=== PATIENT | female | born 1960 | race Caucasian/White ===

== ENCOUNTER → 2021-01-07 09:02 | Outpatient (BNVA) | payer OTHER, SELFPAY | PROVIDERS: PCP Family Medicine; Visit Provider Internal Medicine | DX: R76.8 Other specified abnormal immunological findings in serum (principal); Z11.59 Encounter for screening for other viral diseases; M54.9 Dorsalgia, unspecified; M79.606 Pain in leg, unspecified; M70.60 Trochanteric bursitis, unspecified hip; Y93.9 Activity, unspecified; K12.1 Other forms of stomatitis; R53.83 Other fatigue | CPT/HCPCS: 99204 ==

== ENCOUNTER 2021-01-07 10:31 | Outpatient (CLI) | payer OTHER, SELFPAY ==
--- NOTE | 2021-01-07 10:35 | XR_ITS ---
WS: [id number] Exam: XR sacroiliac jts m 3V [id number] Date/Time of Exam: 01/07/2021 10:35 AM Reason For Exam: L40.9 - Psoriasis, unspecified No fracture or dislocation. 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 No sign of bone destruction. T he SI joints remain open. XR/XR sacroiliac jts m 3V [id number] IMPRESSION: 1. Moderately advanced DJD and bony sclerosis of the SI joints. No acute fractu re or SI joint fusion.
--- NOTE | 2021-01-07 10:35 | XR_ITS ---
WS: [id number] Exam: XR femur RT min 2V* [id number] Date/Time of Exam: 01/07/2021 10:35 AM Reason For Exam: R76.8 - Other specified abnormal immunological findings in serum No acute fracture or dislocation. Normal soft tissues. Moderate DJD at the hip. XR/XR femur RT min 2V* [id number] IMPRESSION: 1. Unremarkable right femur. 2. Moderate DJD at the hip.
--- NOTE | 2021-01-07 10:35 | XR_ITS ---
WS: [id number] Exam: XR lumbar spine 2-3V* [id number] Date/Time of Exam: 01/07/2021 10:35 AM Reason For Exam: R76.8 - Other specified abnormal immunological findings in serum No acute fracture or dislocation. Mild disc space narrowing at all levels. Facet DJD at all levels mo st marked at L4-5 and L5-S1. Mild spondylosis. Osteopenia. Levoscoliosis. DJD of the SI joints. XR/XR lumbar spine 2-3V* [id number] IMPRESSION: 1. Moderate degenerative changes and osteopenia. 2. No acute fracture or malalignment. 3. Levoscoliosis.
[2021-01-07 11:48] LABS: Basophils # 0.1 10^3/uL (0.0-0.1); Eosinophils # 0.2 10^3/uL (0.0-0.8); Eosinophils % 2.5 %; Hematocrit 43.6 % (37.0-47.0); Hemoglobin 14.2 g/dL (11.5-15.3); Lymphocytes # 1.6 10^3/uL (0.8-4.8); Lymphocytes % 26.4 %; Mean Corpuscular HGB Conc 32.6 g/dL (30.0-36.0); Mean Corpuscular Hemoglobin 30.1 pg (28.0-34.0); Mean Corpuscular Volume 92.6 fL (81-99); Mean Platelet Volume 9.1 fL (7.4-10.4); Monocytes # 0.4 10^3/uL (0.2-0.9); Neutrophils # 3.84 10^3/uL (1.8-7.7); Neutrophils % 62.8 %; Nucleated Red Blood Cells % 0 %; Platelet Count 401 10^3/cmm (130-400); Red Blood Count 4.71 10^6/uL (4.1-5.3); Red Cell Distribution Width 12.7 % (12.1-15.1); White Blood Count 6.1 10^3/uL (4.0-10.0)
[2021-01-07 12:43] LABS: Erythrocyte Sedimentation Rate 17 mm/hr (0-15)
[2021-01-07 12:45] LABS: Alanine Aminotransferase 24 U/L (0-33); Albumin Level 4.7 g/dL (3.5-5.2); Alkaline Phosphatase 73 IU/L (35-105); Anion Gap 14.1 (5-19); Aspartate Amino Transferase 15 U/L (0-32); Blood Urea Nitrogen 11 mg/dL (8-23); C Reactive Protein 1.1 mg/L (0.0-4.9); Carbon Dioxide 26 mmol/L (22-29); Chloride 102 mmol/L (98-107); Ferritin 63 ng/mL (15-150); Globulin 3.1 g/dL (1.3-4.6); Glucose 81 mg/dL (65-115); Iron 83 ug/dL (37-145); Magnesium 1.8 mg/dL (1.7-2.3); Osmolality Calculated 284 mOsm/kg (285-295); Phosphorus 3.1 mg/dL (2.5-4.5); Potassium 4.1 mmol/L (3.5-5.1); Sodium 138 mmol/L (136-145); Thyroid Stimulating Hormone 1.11 uIU/mL (0.27-4.20); Total Bilirubin 0.2 mg/dL (0.15-1.2); Total Protein 7.8 g/dL (6.6-8.7)
[2021-01-07 13:59] LABS: Cortisol Random 7.78 ug/dL (2.47-19.5); Hepatitis B Core AB, Total Non-Reactive (Nonreactive); Hepatitis B Surface Antigen Non-Reactive (Nonreactive); Hepatitis C Virus Antibody Non-Reactive (Nonreactive)
[2021-01-08 11:57] LABS: COMPLEMENT COMPONENT C3C 139 mg/dL (83-193); COMPLEMENT COMPONENT C4C 35 mg/dL (15-57)
[2021-01-08 14:31] LABS: CENTROMERE B ANTIBODY <1.0 NEG AI (<1.0 NEG); JO-1 ANTIBODY <1.0 NEG AI (<1.0 NEG); RNP ANTIBODY <1.0 NEG AI (<1.0 NEG); SCL-70 ANTIBODY <1.0 NEG AI (<1.0 NEG); SJOGREN'S ANTIBODY (SS-A) <1.0 NEG AI (<1.0 NEG); SM ANTIBODY <1.0 NEG AI (<1.0 NEG); SS-B <1.0 NEG AI (<1.0 NEG)
[2021-01-08 15:32] LABS: THYROID PEROXIDASE ANTIBODIES 1 IU/mL (<9)
[2021-01-12 14:57] LABS: ANA PATTERN Nuclear, Homogeneous; ANA SCREEN, IFA POSITIVE (NEGATIVE)
[2021-01-13 00:42] LABS: DNA AB (DS) CRITHIDIA,IFA NEGATIVE (NEGATIVE)
== END 2021-01-07 10:32 | disposition home or self-care (01) ==
PROVIDERS: PCP Family Medicine; Visit Provider Internal Medicine
DX: R76.8 Other specified abnormal immunological findings in serum (principal); D86.9 Sarcoidosis, unspecified; L40.9 Psoriasis, unspecified; Z51.81 Encounter for therapeutic drug level monitoring; Z11.59 Encounter for screening for other viral diseases
CPT/HCPCS: 36415; 72100; 72202; 73552; 80053; 82533; 82728; 83540; 83735; 84100; 84443; 85025; 85651; 86140; 86160; 86162; 86235; 86255; 86376; 86431; 86704; 86803; 87340

== ENCOUNTER → 2021-01-30 10:26 | Outpatient (BNVA) | payer OTHER, SELFPAY | PROVIDERS: PCP Family Medicine; Referring Provider Internal Medicine; Visit Provider Anesthesiology Pain Medicine | DX: M54.16 Radiculopathy, lumbar region (principal); M54.9 Dorsalgia, unspecified; M53.3 Sacrococcygeal disorders, not elsewhere classified; M47.816 Spondylosis without myelopathy or radiculopathy, lumbar region | CPT/HCPCS: 99205 ==

== ENCOUNTER → 2021-06-01 09:52 | Outpatient (BNVA) | payer OTHER, SELFPAY | PROVIDERS: PCP Family Medicine; Visit Provider Internal Medicine | DX: R53.83 Other fatigue (principal); M53.3 Sacrococcygeal disorders, not elsewhere classified; Z79.899 Other long term (current) drug therapy; R76.8 Other specified abnormal immunological findings in serum; M54.9 Dorsalgia, unspecified | CPT/HCPCS: 36415; 80053; 85025; 85651; 86140; 86812; 99214 ==

== ENCOUNTER → 2022-06-29 12:00 | Outpatient (BNVA) | payer OTHER, SELFPAY | PROVIDERS: PCP Family Medicine; Visit Provider Family Medicine | DX: Z00.00 Encounter for general adult medical examination without abnormal findings (principal); R76.8 Other specified abnormal immunological findings in serum; R53.83 Other fatigue; M79.606 Pain in leg, unspecified | CPT/HCPCS: 80053; 80061; 83036; 85025; 85651; 86140; 86160; 86162; 86235; 86255; 86376 ==

== ENCOUNTER 2022-07-07 09:58 | Outpatient (CLI) | payer OTHER, SELFPAY ==
--- NOTE | 2022-07-07 10:13 | MM_ITS ---
WS: [id number] BILATERAL SCREENING DIGITAL TOMOSYNTHESIS MAMMOGRAM WITH CAD HISTORY: screening COMPARISON: 08/20/2014 Bilateral CC and MLO views with tomosynthesis and synthetic mammography submitted. Computer aided det ection analyzed. Breast composition: There are scattered areas of fibroglandular density. No suspicious masses, microc alcifications or architectural distortion. MM/[place] [id number] IMPRESSION: BI-RADS: 1-Negative FOLLOW UP: 1 Year Follow-up
== END 2022-07-07 09:59 | disposition home or self-care (01) ==
PROVIDERS: PCP Family Medicine; Visit Provider Family Medicine
DX: Z12.31 Encounter for screening mammogram for malignant neoplasm of breast (principal)
CPT/HCPCS: 77063; 77067

== ENCOUNTER → 2023-06-01 09:06 | Outpatient (BNVA) | payer MEDICARE, SELFPAY | PROVIDERS: PCP Family Medicine; Visit Provider Family Medicine | DX: Z00.00 Encounter for general adult medical examination without abnormal findings (principal); I10 Essential (primary) hypertension; E11.9 Type 2 diabetes mellitus without complications | CPT/HCPCS: 80053; 80061; 83036; 85025 ==

== ENCOUNTER 2023-08-31 07:27 | Day surgery (SDC) | payer MEDICARE, MEDICAID, SELFPAY ==
[2023-08-31 07:40] VITALS: BP 165/79; PULSE 77; RESP 18; TEMP 36.6; O2SAT 98; BMI 25.7
--- NOTE | 2023-08-31 07:45 | PM.HP ---
Providers/Chief Complaint Primary Care Provider: Wilmar Basilio MD Chief Complaint: Z12.11 History of Present Illness Padmini Ashton is a 62 year old female here for her first screening colonoscopy. She reports that her maternal grandfather had colon cancer. She denies any abdominal pain, nausea, emesis, diarrhea, constipation, hematochezia and/or melena Review of Systems General: Reports: 10 or more systems reviewed and unremarkable except in HPI and below Medications/Allergies Home Medications Medication Instructions Recorded Confirmed Last Taken Type aspirin 81 mg tablet,delayed 81 mg PO DAILY 12/26/20 08/31/23 08/30/23 History release multivitamin 1 tab PO DAILY 12/26/20 08/31/23 08/30/23 History acetaminophen 500 mg tablet 500 mg PO Q6H PRN Pain 01/30/21 08/31/23 08/26/23 History (Tylenol Extra Strength) alprazolam 0.25 mg tablet 0.25 mg PO BID PRN anxiety #30 tabs 06/01/23 08/31/23 Unknown Rx atorvastatin 20 mg tablet 20 mg PO DAILY #90 tabs 06/01/23 08/31/23 08/30/23 Rx glimepiride 2 mg tablet 2 mg PO DAILY #90 tabs 06/01/23 08/31/23 08/30/23 Rx lisinopril 5 mg tablet 5 mg PO DAILY #90 tabs 06/01/23 08/31/23 08/30/23 Rx metformin 1,000 mg tablet 1,000 mg PO BID #180 tabs 06/01/23 08/31/23 08/30/23 Rx Allergies Allergy/AdvReac Type Severity Reaction Status Date / Time codeine Allergy Severe severe Verified 08/31/23 07:38 oxytetracycline Allergy Severe severe Verified 08/31/23 07:38 [From Terramycin] Penicillins Allergy Severe severe Verified 08/31/23 07:38 Sulfa (Sulfonamide Allergy Severe severe Verified 08/31/23 07:38 Antibiotics) meloxicam Allergy Mild dizziness Verified 08/31/23 07:38 simvastatin AdvReac Intermediate cramps Verified 08/31/23 07:38 PFSH Acute PFSH: Medical History (Updated 08/31/23 @ 07:46 by Ata Chavez DO) Diabetes Family history of colon cancer Hypertension Surgical History (Updated 08/31/23 @ 07:46 by Ata Chavez DO) History of tubal ligation Social History Smoking and tobacco/nicotine status: never used tobacco/nicotine Second hand smoke exposure: No Alcohol intake: never Substance/Drug Use: never Lives independently: Yes A&P Assessment and plan (1) Colon cancer screening: (2) Family history of colon cancer: Plan Screening colonoscopy The risks and benefits of the procedure, including bleeding, infection, intestinal perforation requiring surgery, missed lesion were explained to the patient. The patient is understanding of the risks and wishes to proceed. Attestations Medical Necessity Statement*: home Coding Level of Care Code Acute Code for Chg Fwd Diagnoses Colon cancer screening Z12.11 Family history of colon cancer Z80.0
--- NOTE | 2023-08-31 07:49 | ANES.PREANE2 ---
Pre-Anesthetic Assessment Height/Weight: Height 1.63 m Weight 68.039 kg Temp Pulse Resp BP Pulse Ox O2 Del Method 97.8 F 77 18 165/79 98 Room Air 08/31/23 07:40 08/31/23 07:40 08/31/23 07:40 08/31/23 07:40 08/31/23 07:40 08/31/23 07:40 Preop Diagnosis: screening Operation Date: 08/31/23 08:30 Proposed Procedures p Colonoscopy 81047,Z12.11(Not Applicable) - Ata Chavez DO Familial anesthetic complications: None Was Beta Karlee taken within 24 hours: N/A Was Clonidine taken within 24 hours: N/A Last intake: Intake Last Liquid Date 08/30/23 Last Liquid Time 23:00 Last Solid Date 08/29/23 Social No alcohol and No tobacco Exam alert, oriented x 3 and regular rate & rhythm Airway Submandibular: within normal limits Mallampati: Class II Dentition: full and other (2 loose caps front teeth) History/ROS No significant history except as noted Pulmonary None reported CV/HEM Hypertension None reported Hepatic None reported GI None reported Metabolic Diabetes Mellitus (type 2) [facility] [place] None reported Neuropsych None reported Anesthetic Plan ASA status: 2 Anesthesia: MAC Risk of > 500 ml blood loss (7ml/kg in children): No Medications/Allergies Home Medications Medication Instructions Recorded Confirmed Last Taken Type aspirin 81 mg tablet,delayed 81 mg PO DAILY 12/26/20 08/31/23 08/30/23 History release multivitamin 1 tab PO DAILY 12/26/20 08/31/23 08/30/23 History acetaminophen 500 mg tablet 500 mg PO Q6H PRN Pain 01/30/21 08/31/23 08/26/23 History (Tylenol Extra Strength) alprazolam 0.25 mg tablet 0.25 mg PO BID PRN anxiety #30 tabs 06/01/23 08/31/23 Unknown Rx atorvastatin 20 mg tablet 20 mg PO DAILY #90 tabs 06/01/23 08/31/23 08/30/23 Rx glimepiride 2 mg tablet 2 mg PO DAILY #90 tabs 06/01/23 08/31/23 08/30/23 Rx lisinopril 5 mg tablet 5 mg PO DAILY #90 tabs 06/01/23 08/31/23 08/30/23 Rx metformin 1,000 mg tablet 1,000 mg PO BID #180 tabs 06/01/23 08/31/23 08/30/23 Rx Allergies Allergy/AdvReac Type Severity Reaction Status Date / Time codeine Allergy Severe severe Verified 08/31/23 07:38 oxytetracycline Allergy Severe severe Verified 08/31/23 07:38 [From Terramycin] Penicillins Allergy Severe severe Verified 08/31/23 07:38 Sulfa (Sulfonamide Allergy Severe severe Verified 08/31/23 07:38 Antibiotics) meloxicam Allergy Mild dizziness Verified 08/31/23 07:38 simvastatin AdvReac Intermediate cramps Verified 08/31/23 07:38 [facility] Anesthesia Medical History (Updated 08/31/23 @ 07:46 by Ata Chavez DO) Diabetes Family history of colon cancer Hypertension Surgical History (Updated 08/31/23 @ 07:46 by Ata Chavez DO) History of tubal ligation Social History Smoking and tobacco/nicotine status: never used tobacco/nicotine Second hand smoke exposure: No Alcohol intake: never Substance/Drug Use: never Lives independently: Yes Data Anesthesia Cardiac Studies: No Data to Display
[2023-08-31] MEDS: sodium chloride 0.9% 1,000 ML 30 ML IV (07:51)
[2023-08-31 08:00] LABS: Glucose Point of Care 112 mg/dL (70-110)
[2023-08-31 08:24] VITALS: BP 144/74; PULSE 63; RESP 14; TEMP 36.2; O2SAT 97
[2023-08-31 08:33] VITALS: BP 143/82; PULSE 63; RESP 16; TEMP 36.2; O2SAT 100
[2023-08-31 08:44] VITALS: BP 159/73; PULSE 66; RESP 18; TEMP 36.3; O2SAT 99
== END 2023-08-31 08:54 | disposition home or self-care (01) ==
PROVIDERS: PCP Family Medicine; Visit Provider Surgery
PROC: 0DJD8ZZ Inspection of Lower Intestinal Tract, Via Natural or Artificial Opening Endoscopic (ICD-10-PCS; CPT 45378; principal; 2023-08-31 08:30)
DX: Z12.11 Encounter for screening for malignant neoplasm of colon (principal); Z80.0 Family history of malignant neoplasm of digestive organs; K57.30 Diverticulosis of large intestine without perforation or abscess without bleeding; D12.4 Benign neoplasm of descending colon; Z79.82 Long term (current) use of aspirin; Z79.84 Long term (current) use of oral hypoglycemic drugs; E11.9 Type 2 diabetes mellitus without complications; I10 Essential (primary) hypertension
CPT/HCPCS: 36416; 45385; 82962; 88305; J2704; J7030

== ENCOUNTER → 2023-09-13 14:02 | Outpatient (BNVA) | payer MEDICARE, MEDICAID, SELFPAY | PROVIDERS: PCP Family Medicine; Visit Provider Surgery | DX: Z09 Encounter for follow-up examination after completed treatment for conditions other than malignant neoplasm (principal) | CPT/HCPCS: 99213 ==

== ENCOUNTER → 2023-11-15 13:26 | Outpatient (BNVA) | payer MEDICARE, MEDICAID, SELFPAY | PROVIDERS: PCP Family Medicine; Visit Provider Nurse Practitioner | DX: R05.9 Cough, unspecified (principal) | CPT/HCPCS: 87400 ==

== ENCOUNTER → 2024-07-04 09:17 | Outpatient (BNVA) | payer MEDICARE, SELFPAY | PROVIDERS: PCP Family Medicine; Visit Provider Family Medicine | DX: Z00.00 Encounter for general adult medical examination without abnormal findings (principal); I10 Essential (primary) hypertension; E11.9 Type 2 diabetes mellitus without complications | CPT/HCPCS: 80053; 80061; 83036; 87624 ==

== ENCOUNTER 2024-08-21 09:54 | Outpatient (CLI) | payer MEDICARE, SELFPAY ==
--- NOTE | 2024-08-21 10:00 | MM_ITS ---
WS: [id number] BILATERAL 3D TOMOSYNTHESIS DIGITAL SCREENING MAMMOGRAPHY WITH CAD CLINICAL INFORMATION: screening HISTORY: Screening mammogram. No current complaints. COMPARISON: 2013 TECHNIQUE: Bilateral CC and MLO views. FINDINGS: Scattered fibroglandular densities bilaterally. No suspicious focal mass, asymmetry, calcifications, or architectural distortion. No evidence of malignancy. Incidental punctate calcifications. MM/MM scr tomosynthesis [id number] IMPRESSION: DENSITY: There are scattered areas of fibroglandular density. BI-RADS: 2 - Benign. FOLLOW UP: 1 Year Follow-up Recommend return to annual screening mammography.
== END 2024-08-21 09:55 | disposition home or self-care (01) ==
LOC: MOBLMAM 09:58
PROVIDERS: PCP Family Medicine; Visit Provider Family Medicine
DX: Z12.31 Encounter for screening mammogram for malignant neoplasm of breast (principal); R92.323 Mammographic fibroglandular density, bilateral breasts
CPT/HCPCS: 77063; 77067; 80053; 80061; 83036; 87624

== ENCOUNTER → 2025-06-04 10:51 | Outpatient (BNVA) | payer MEDICARE, SELFPAY | PROVIDERS: PCP Family Medicine; Visit Provider Family Medicine | DX: I10 Essential (primary) hypertension (principal); E11.9 Type 2 diabetes mellitus without complications; Z00.00 Encounter for general adult medical examination without abnormal findings | CPT/HCPCS: 80053; 80061; 83036; 85025 ==